=== PATIENT | female | born 1990 | race Caucasian/White ===

== ENCOUNTER 2017-04-09 12:30 | Day surgery (SDC) | payer OTHER ==
[~2017-04-09] VITALS: Ht 154.9 cm; Wt 73.5 kg
[~2017-04-09 12:30] MED LIST: DICLEGIS PO; PRENATAL MVI PO
[2017-04-09 13:13] VITALS: BP 150/87; PULSE 97; TEMP 99.2
[2017-04-09] MEDS ORDERED: ZANTAC 7575 MG PO (14:44)
[2017-04-09] MEDS ORDERED: NORMODYNE100 MG PO (14:44)
[2017-04-09] MEDS ORDERED: PEN-VEE K500 MG PO (14:45)
[2017-04-09] MEDS ORDERED: IMITREX 25MG TA25 MG PO (14:46)
[2017-04-09 16:23] VITALS: BP 132/72; PULSE 81; TEMP 98.2
[2017-04-09 16:38] VITALS: BP 130/66; PULSE 87
[2017-04-09 16:53] VITALS: BP 132/62; PULSE 75
[2017-04-09] MEDS ORDERED: NORCO 325 MG-51 TAB PO (16:58)
[2017-04-09] MEDS ORDERED: SENOKOT S 50 MG1 TAB PO (16:58)
[2017-04-09] MEDS ORDERED: PYRIDIUM 100MG100 MG PO (16:59)
[2017-04-09 17:08] VITALS: BP 125/77; PULSE 81
== END 2017-04-09 17:50 | disposition home or self-care (01) ==
LOC: SDCO 12:30
DX: R31.0 Gross hematuria (principal); N20.0 Calculus of kidney; I10 Essential (primary) hypertension; K21.9 Gastro-esophageal reflux disease without esophagitis; M54.5 Low back pain; Z87.442 Personal history of urinary calculi; G89.29 Other chronic pain; F17.210 Nicotine dependence, cigarettes, uncomplicated
CPT/HCPCS: J0690; J1100; J1170; J1885; J2405; J2550; J2704; J3010; J7120; Q9967